=== PATIENT | male | born 1965 | race Caucasian/White ===

== ENCOUNTER 2021-07-15 20:53 | Emergency (ER) | payer OTHER ==
[2021-07-15] MEDS ORDERED: Ondansetron PF 4 MG/2 ML Vial ONE (21:14)
[2021-07-15] MEDS ORDERED: Morphine 4 MG/ML VIAL ONE ×2 (21:14→21:48)
[2021-07-15] MEDS ORDERED: Nitroglycerin 2% Ointment 1 INCH/1 GM Packet ONE (21:14)
[2021-07-15 21:24] LABS: #Lymphocytes 1.7 thou/uL (1.20-3.40); #Monocytes 0.6 thou/uL (0.11-0.59); #Neutrophils 2.3 thou/uL (1.40-6.50); %Basophils 0.7 % (0.0-1.0); %Eosinophils 0.5 % (0.0-10.0); %Lymphocytes 36.9 % (21.0-51.0); %Monocytes 12.8 % (0.0-10.0); %Neutrophils 49.1 % (42.0-75.0); Hemoglobin 11.7 g/dL (14.0-18.0); Mean Corpuscular HGB CONC 35.5 g/dL (32.0-36.0); Mean Corpuscular Hemoglobin 34.3 pg (27.0-31.0); Mean Corpuscular Volume 96.6 fL (78.0-98.0); Platelet Count 243 thou/uL (130-400); RBC Distribution Width 11.3 % (11.5-14.5); Red Blood Cell (RBC) Count 3.43 mill/uL (4.70-6.10); White Blood Cell (WBC) Count 4.7 thou/uL (4.8-10.8)
[2021-07-15 21:28] LABS: ALT (SGPT) 48 U/L (8-55); AST (SGOT) 29 U/L (5-34); Albumin 3.8 g/dL (3.5-5.0); Alkaline Phosphatase 78 U/L (40-110); Anion Gap 11 mmol/L (10-20); BUN (Urea Nitrogen) 10 mg/dL (8.4-25.7); Bilirubin, Total 0.4 mg/dL (0.2-1.2); CK (CPK) 145 U/L (30-200); Calc. Creatinine Clearance 0 mL/min (70-130); Calcium 9.3 mg/dL (7.8-10.44); Carbon Dioxide 27 mmol/L (22-29); Chloride 97 mmol/L (98-107); Globulin 3.4 g/dL (2.4-3.5); Glucose 327 mg/dL (70-105); Lipase 77 U/L (8-78); Potassium 4.2 mmol/L (3.5-5.1); Protein, Total 7.2 g/dL (6.0-8.3); Sodium 131 mmol/L (136-145)
[2021-07-15 22:22] LABS: SARS-CoV-2 NAA Rapid Test Not Detected (NotDetected)
== END 2021-07-15 23:05 | disposition home or self-care (01) ==
LOC: NAV ERS 20:53
DX: I25.10 Atherosclerotic heart disease of native coronary artery without angina pectoris (principal); I11.0 Hypertensive heart disease with heart failure; I50.9 Heart failure, unspecified; E11.9 Type 2 diabetes mellitus without complications; I25.2 Old myocardial infarction; K21.9 Gastro-esophageal reflux disease without esophagitis; E78.5 Hyperlipidemia, unspecified; Z86.73 Personal history of transient ischemic attack (TIA), and cerebral infarction without residual deficits; Z86.718 Personal history of other venous thrombosis and embolism; Z79.899 Other long term (current) drug therapy; Z79.01 Long term (current) use of anticoagulants; Z20.822 Contact with and (suspected) exposure to COVID-19; Z87.891 Personal history of nicotine dependence; Z79.4 Long term (current) use of insulin
CPT/HCPCS: 71045; 80053; 82550; 83690; 84484; 85025; 93005; 96374; 96375; J2270; J2405; U0002

== ENCOUNTER 2022-01-28 21:01 | Emergency (ER) | payer OTHER ==
[2022-01-28 21:27] LABS: #Basophils 0.1 thou/uL (0.0-0.2); #Eosinphils 0.1 thou/uL (0.0-0.7); #Lymphocytes 2.9 thou/uL (1.20-3.40); #Monocytes 0.5 thou/uL (0.11-0.59); #Neutrophils 4.2 thou/uL (1.40-6.50); %Eosinophils 1.4 % (0.0-10.0); %Lymphocytes 37.1 % (21.0-51.0); %Monocytes 6.7 % (0.0-10.0); %Neutrophils 53.8 % (42.0-75.0); Hemoglobin 13.2 g/dL (14.0-18.0); Mean Corpuscular HGB CONC 34.1 g/dL (32.0-36.0); Mean Corpuscular Hemoglobin 33.2 pg (27.0-31.0); Mean Corpuscular Volume 97.2 fL (78.0-98.0); Mean Platelet Volume 7.5 fL (7.4-10.4); Platelet Count 276 thou/uL (130-400); RBC Distribution Width 13.2 % (11.5-14.5); Red Blood Cell (RBC) Count 3.98 mill/uL (4.70-6.10); White Blood Cell (WBC) Count 7.7 thou/uL (4.8-10.8)
[2022-01-28] MEDS ORDERED: Ondansetron PF 4 MG/2 ML Vial ONE (21:29)
[2022-01-28] MEDS ORDERED: Morphine 4 MG/ML VIAL ONE ×2 (21:29→22:46)
[2022-01-28 21:41] LABS: ALT (SGPT) 88 U/L (8-55); AST (SGOT) 41 U/L (5-34); Albumin 3.9 g/dL (3.5-5.0); Alkaline Phosphatase 86 U/L (40-110); Anion Gap 17 mmol/L (10-20); BUN (Urea Nitrogen) 12 mg/dL (8.4-25.7); Bilirubin, Total 0.3 mg/dL (0.2-1.2); Calc. Creatinine Clearance 0 mL/min (70-130); Calcium 9.2 mg/dL (7.8-10.44); Carbon Dioxide 23 mmol/L (22-29); Chloride 100 mmol/L (98-107); Globulin 3.3 g/dL (2.4-3.5); Glucose 459 mg/dL (70-105); Protein, Total 7.2 g/dL (6.0-8.3); Sodium 136 mmol/L (136-145)
[2022-01-28 21:59] LABS: INR-International Normal Ratio 1.2; Prothrombin Time 15.1 sec (12.0-14.7)
[2022-01-28 22:02] LABS: D-Dimer Test 0.33 *mcg/mL (0.27-0.43)
[2022-01-28] MEDS ORDERED: Insulin Regular 300 UNITS/3 ML VIAL ONE (22:08)
[2022-01-28] MEDS ORDERED: NPH, Human Insulin Isophane 300 UNIT/3 ML VIAL SC SCH (22:15)
[2022-01-28 23:13] LABS: SARS-CoV-2 NAA Rapid Test Not Detected (NotDetected)
[2022-01-28] MEDS ORDERED: Fentanyl 100 MCG/2 ML VIAL ONE (23:56)
[2022-01-29] MEDS ORDERED: Sodium Chloride 0.9% 100 ML ONE (00:42)
[2022-01-29] MEDS ORDERED: Promethazine HCl 25 MG/ML VIAL ONE (00:42)
[2022-01-29] MEDS ORDERED: Sodium Chloride 0.9% 1,000 ML ONE (01:52)
== END 2022-01-29 02:55 | disposition short-term general hospital (02) ==
LOC: NAV ERS 21:01
DX: R07.89 Other chest pain (principal); Z20.822 Contact with and (suspected) exposure to COVID-19; D64.9 Anemia, unspecified; I48.91 Unspecified atrial fibrillation; E11.9 Type 2 diabetes mellitus without complications; I11.0 Hypertensive heart disease with heart failure; I50.9 Heart failure, unspecified; I25.10 Atherosclerotic heart disease of native coronary artery without angina pectoris; Z86.73 Personal history of transient ischemic attack (TIA), and cerebral infarction without residual deficits; E78.5 Hyperlipidemia, unspecified; Z86.718 Personal history of other venous thrombosis and embolism; K21.9 Gastro-esophageal reflux disease without esophagitis; Z95.5 Presence of coronary angioplasty implant and graft
CPT/HCPCS: 36416; 71045; 80053; 84484; 85025; 85379; 85610; 85730; 93005; 96374; 96375; 96376; J1815; J2270; J2405; J2550; J3010; J7050; U0002

== ENCOUNTER 2022-03-18 22:29 | Emergency (ER) | payer OTHER ==
[2022-03-18] MEDS ORDERED: Ondansetron PF 4 MG/2 ML Vial ONE (23:03)
[2022-03-18] MEDS ORDERED: Morphine 4 MG/ML VIAL ONE (23:03)
[2022-03-18 23:24] LABS: #Basophils 0.1 thou/uL (0.0-0.2); #Eosinphils 0.1 thou/uL (0.0-0.7); #Lymphocytes 2.3 thou/uL (1.20-3.40); #Monocytes 0.6 thou/uL (0.11-0.59); #Neutrophils 3.2 thou/uL (1.40-6.50); %Basophils 1.3 % (0.0-1.0); %Eosinophils 1.6 % (0.0-10.0); %Lymphocytes 36.5 % (21.0-51.0); %Monocytes 8.8 % (0.0-10.0); %Neutrophils 51.8 % (42.0-75.0); Hemoglobin 12.7 g/dL (14.0-18.0); Mean Corpuscular HGB CONC 32.5 g/dL (32.0-36.0); Mean Corpuscular Hemoglobin 32.3 pg (27.0-31.0); Mean Corpuscular Volume 99.4 fL (78.0-98.0); Mean Platelet Volume 6.7 fL (7.4-10.4); Platelet Count 242 thou/uL (130-400); RBC Distribution Width 12.8 % (11.5-14.5); Red Blood Cell (RBC) Count 3.95 mill/uL (4.70-6.10); White Blood Cell (WBC) Count 6.2 thou/uL (4.8-10.8)
[2022-03-18 23:41] LABS: ALT (SGPT) 49 U/L (8-55); AST (SGOT) 24 U/L (5-34); Albumin 3.7 g/dL (3.5-5.0); Alkaline Phosphatase 101 U/L (40-110); Anion Gap 15 mmol/L (10-20); BUN (Urea Nitrogen) 8 mg/dL (8.4-25.7); Bilirubin, Total 0.4 mg/dL (0.2-1.2); Calc. Creatinine Clearance 0 mL/min (70-130); Calcium 9.2 mg/dL (7.8-10.44); Carbon Dioxide 27 mmol/L (22-29); Chloride 98 mmol/L (98-107); Estimated GFR 106; Globulin 3.3 g/dL (2.4-3.5); Glucose 370 mg/dL (70-105); Lipase 30 U/L (8-78); Sodium 136 mmol/L (136-145)
[2022-03-19] MEDS ORDERED: Morphine 4 MG/ML VIAL ONE ×2 (00:18→07:49)
[2022-03-19 01:08] LABS: SARS-CoV-2 NAA Rapid Test Not Detected (NotDetected)
[2022-03-19] MEDS ORDERED: Fentanyl 100 MCG/2 ML VIAL ONE (02:52)
[2022-03-19] MEDS ORDERED: Famotidine 20 MG TAB ONE (08:53)
[2022-03-19] MEDS ORDERED: Lisinopril 10 MG TAB ONE (08:53)
[2022-03-19] MEDS ORDERED: Aspirin Chewable 81 MG TAB ONE (08:53)
[2022-03-19] MEDS ORDERED: Furosemide 40 MG TAB ONE (08:53)
[2022-03-19] MEDS ORDERED: Carvedilol 3.125 MG TAB ONE (08:53)
[2022-03-19] MEDS ORDERED: Levothyroxine Sodium 25 MCG TAB PO SCH (09:00)
[2022-03-19] MEDS ORDERED: NPH, Human Insulin Isophane 300 UNIT/3 ML VIAL SC SCH (09:00)
[2022-03-19 09:12] LABS: INR-International Normal Ratio 1.6; Prothrombin Time 18.9 sec (12.0-14.7)
[2022-03-19] MEDS ORDERED: Acetaminophen 325 MG TAB ONE (11:18)
[2022-03-20] MEDS ORDERED: Levothyroxine Sodium 25 MCG TAB PO SCH (06:00)
== END 2022-03-19 14:00 | disposition home or self-care (01) ==
LOC: NAV ERS 22:29
DX: R07.9 Chest pain, unspecified (principal); Z20.822 Contact with and (suspected) exposure to COVID-19; E11.9 Type 2 diabetes mellitus without complications; E03.9 Hypothyroidism, unspecified; I11.0 Hypertensive heart disease with heart failure; I50.9 Heart failure, unspecified; I25.2 Old myocardial infarction; Z79.899 Other long term (current) drug therapy
CPT/HCPCS: 36415; 36416; 71045; 80053; 83690; 84484; 85025; 85610; 93005; 96361; 96374; 96375; 96376; J1815; J2270; J2405; J3010; U0002